=== PATIENT | female | born 2000 | race Caucasian/White ===

== ENCOUNTER 2022-01-19 10:32 | Emergency (ER) | payer OTHER ==
[2022-01-19] MEDS ORDERED: Ondansetron ODT 4 MG TAB ONE (11:56)
[2022-01-19 21:14] LABS: SARS-CoV-2 PCR by NAA Not Detected (NotDetected)
== END 2022-01-19 12:04 | disposition home or self-care (01) ==
LOC: MADERS 10:32
DX: J02.9 Acute pharyngitis, unspecified (principal); R09.81 Nasal congestion; R50.9 Fever, unspecified; J45.909 Unspecified asthma, uncomplicated; Z20.822 Contact with and (suspected) exposure to COVID-19
CPT/HCPCS: 87081; 87430; 87804; 99283; Q0162; U0003; U0005

== ENCOUNTER 2022-02-21 09:37 | Emergency (ER) | payer OTHER, SELFPAY | END 2022-02-21 10:05 | disposition home or self-care (01) | LOC: MADERS 09:37 | DX: S60.212A Contusion of left wrist, initial encounter (principal); L03.114 Cellulitis of left upper limb | CPT/HCPCS: 99283 ==